=== PATIENT | female | born 1955 | race Asian ===

== ENCOUNTER 2019-05-07 13:04 | Emergency (ER) | payer BC, OTHER ==
[~2019-05-07] VITALS: Ht 160 cm; Wt 65.3 kg
[2019-05-07 13:12] VITALS: Ht 160 cm; Wt 65.3 kg
[2019-05-07 14:55] VITALS: BP 148/82
== END 2019-05-07 14:55 | disposition home or self-care (01) ==
LOC: ED 13:04
DX: R51 Headache (principal); R42 Dizziness and giddiness; Z88.5 Allergy status to narcotic agent; V43.52XA Car driver injured in collision with other type car in traffic accident, initial encounter; Y93.I9 Activity, other involving external motion; Y92.411 Interstate highway as the place of occurrence of the external cause; Y99.8 Other external cause status